=== PATIENT | female | born 1960 | race Caucasian/White ===

== ENCOUNTER 2020-02-15 06:20 | Day surgery (SDC) | payer OTHER ==
[~2020-02-15] VITALS: Ht 167.6 cm; Wt 87.1 kg
--- NOTE | 2020-02-15 08:19 | NUR ---
02/15/20 0819 Fly Gautam MD AT BEDSIDE REVIEWING PROCEDURE WITH PT.
--- NOTE | 2020-02-15 16:56 | OR ---
[facility] [address], [place] [address] Signed DATE OF OPERATION: 02/15/2020 SURGEON: Jayna Stanton MD PREOPERATIVE DIAGNOSES: 1. Colon surveillance, last colonoscopy in 2007. 2. History of right breast cancer treatment in 2000. POSTOPERATIVE DIAGNOSIS: Pandiverticulosis. PROCEDURE: Total colonoscopy to cecum. ANESTHESIA: Intravenous sedation, fentanyl 125 mcg and Versed 6 mg. INDICATION: This 59-year-old white woman is a patient of Dr. Beck and well known to me from the past. She underwent a right breast cancer treatment in 2000 and remains free of cancer. She last underwent colonoscopy in 2007. She is admitted at this time to undergo surveillance colonoscopy and understands the risks of bleeding, infection, and perforation. Notably, she has no problems of bleeding, diarrhea or constipation. COVID testing preoperatively was negative. FINDINGS: The prep was excellent. Complete colonoscopy was undertaken of the cecum. It was somewhat challenging given the extent of diverticulosis. She had diverticula throughout the colon and most densely in the sigmoid and left colon. There were no signs of polyps, colitis or other abnormality other than the diverticula. DESCRIPTION OF PROCEDURE: The patient was brought to the endoscopy suite and placed in lateral decubitus position, given intravenous sedation to the point of slurred speech and nystagmus. Digital rectal examination was normal. An Olympus video colonoscope was passed per rectum and manipulated throughout the colon noting extensive diverticular changes of the sigmoid. Various maneuvers were required to pass through this area, but once beyond sigmoid, passage was rather easy. The scope was ultimately advanced to the cecum. The ileocecal valve and appendiceal orifice were Electronically Signed By: JAYNA STANTON MD 02/15/20 1656 PATIENT NAME: STACEY HERNANDEZ OPERATIVE REPORT DATE OF : 62 REPORT #: [id number] PHYSICIAN: JAYNA STANTON MD PCP: ALY BECK DO REPORT IS CONFIDENTIAL AND NOT TO BE RELEASED WITHOUT AUTHORIZATION [facility] [address] [place] [id number] Signed normal. The scope was withdrawn from that point. Diverticula were noted in the ascending colon as well. Careful withdrawal of scope throughout showed no sign of polyps or colitis, only diverticular changes as described. Retroflexed view was normal as well. The scope was removed. The patient was taken to the recovery room in good condition. CONCLUDING DIAGNOSIS: Extensive diverticulosis. PLAN: Recommend a high-fiber diet. Repeat colonoscopy in 10 years sooner if clinically indicated. She will return to the ongoing care of Dr. Beck. MD KAREN Landin/MARYLOU /[id number] cc: Aly Beck DO Copies: ALY BECK DO ~ Electronically Signed By: JAYNA STANTON MD 02/15/20 1656 PATIENT NAME: STACEY HERNANDEZ OPERATIVE REPORT DATE OF : 62 REPORT #: [id number] PHYSICIAN: JAYNA STANTON MD PCP: ALY BECK DO REPORT IS CONFIDENTIAL AND NOT TO BE RELEASED WITHOUT AUTHORIZATION
== END 2020-02-15 08:39 | disposition home or self-care (01) ==
LOC: DS 06:20 → OPS 06:20 → DS 06:45 → OPS 06:45
PROVIDERS: Surgery
PROC: 0DJD8ZZ Inspection of Lower Intestinal Tract, Via Natural or Artificial Opening Endoscopic (ICD-10-PCS; principal; 2020-02-15 06:45)
DX: Z12.11 Encounter for screening for malignant neoplasm of colon (principal); K57.30 Diverticulosis of large intestine without perforation or abscess without bleeding; Z85.3 Personal history of malignant neoplasm of breast; Z90.711 Acquired absence of uterus with remaining cervical stump
CPT/HCPCS: 99153; G0500; J2250; J3010; J7121

== ENCOUNTER 2021-04-13 05:55 | Day surgery (SDC) | payer OTHER ==
[~2021-04-13] VITALS: Ht 167.6 cm; Wt 84.5 kg
--- NOTE | ~2021-04-13 | OR ---
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 POSTOPERATIVE DIAGNOSIS: CHRONIC CALCULOUS CHOLECYSTITIS. PROCEDURES: 1. Laparoscopic cholecystectomy with intraoperative cholangiogram. 2. Surgeon-directed fluoroscopy. ANESTHESIA: General endotracheal, Alondra Pratima, VACUUM CLOSING MACHINE OPERATOR and local 20 mL of 0.25% Marcaine with epinephrine. INDICATION: This 60-year-old white woman is a patient of Dr. Aly Beck. She has been having symptoms highly suggestive of biliary disease including epigastric and right subcostal pain. A gallbladder ultrasound was performed, which was normal and a CCK-HIDA test performed showed a 20% ejection fraction. She does have family history of biliary disease in her mother, who required cholecystectomy. The patient is noted to have a prior history of breast cancer treated by [facility] in 2000. She has had no evidence of recurrence notably, this is now 20 years later. She is admitted at this time to undergo cholecystectomy for acalculous cholecystitis. Understanding well the risks of bleeding, infection, bile duct injury, need for open procedure and other unforeseen complications. Understanding this, she wished to proceed. FINDINGS: The gallbladder was chronically inflamed to be sure. The liver was normal. She was noted to have yellow cholesterol stone material within the cystic duct, which was milked out in a retrograde fashion. The cholangiogram ultimately performed showed good filling of the biliary tree and although initially there may have been some suggestion of tiny debris within the duct. Ultimately, the duct appeared cleared and irrigated well into the duodenum. There was no evidence of bile leak. PATIENT NAME: STACEY HERNANDEZ OPERATIVE REPORT DATE OF : 62 REPORT #: [id number] PHYSICIAN: JAYNA STANTON MD PCP: ALY BECK DO REPORT IS CONFIDENTIAL AND NOT TO BE RELEASED WITHOUT AUTHORIZATION [facility] [address] [place], [place] [address] Draft The gallbladder once excised had considerable number of small stones, all of them soft and in aggregate somewhat mushy, and it is surprisingly ultrasound did not see that. DESCRIPTION OF PROCEDURE: The patient was brought to the operating room, given a general endotracheal anesthetic. Preoperative antibiotic Ancef was given and sequential compression device stockings were used. The abdomen is prepared with a chlorhexidine solution and draped sterilely. An infraumbilical incision was made and using an open Sadaf cannula technique, pneumoperitoneum achieved to a level of 14 mmHg of carbon dioxide gas. Intraabdominal inspection showed no sign of ascites or carcinomatosis. The gallbladder was obscured from view due to the omentum. The liver appeared normal. Three additional trocars were placed in usual configuration in the subxiphoid, right midclavicular, and right anterior axillary line. The gallbladder was elevated cephalad and retracted laterally. Cholesterolosis could be visualized through the wall of the gallbladder by transillumination. The gallbladder retracted laterally and using blunt and electrocautery dissection, the triangle of Calot was dissected free. There were some technical difficulties with the equipment with the picture intermittently being lost and on that basis, a bit of a delay was required to change out the monitor equipment. There were no further problems once that was squared away. Further dissection defined well the cystic duct. Clips were applied to small vessels that were in the retrocystic area, mindful of the common duct, which was quite easily visible. Ultimately, a clip was applied across the gallbladder cystic duct junction and transverse choledochotomy made in the cystic duct. Retrograde milking of the duct delivered soft much yellow gallstone material. This was extracted. At that point, good retrograde flow of normal bile was noted. Various attempts to cannulate the cystic duct were unsuccessful and on that basis, additional dissection was undertaken to free up more of the ducts. Once this was accomplished, the cystic duct was milked again in a retrograde fashion showing no further stones within the cystic duct. With all due care, the cystic duct was ultimately intubated with a cannula and intraoperative cholangiography was undertaken. Using surgeon-directed fluoroscopy, free flow of contrast was noted into the cystic duct into the common bile duct, which was somewhat dilated. There appeared to be some hazy debris possibly in the mid distal common duct, but contrast was flowing into the duodenum without problem. There was no impediment to flow. Further irrigation appeared to clear this problem. Consideration was made for laparoscopic common duct exploration, but it was deemed unnecessary given the nature of the stones, the clearance of the duct PATIENT NAME: STACEY HERNANDEZ OPERATIVE REPORT DATE OF : 62 REPORT #: [id number] PHYSICIAN: JAYNA STANTON MD PCP: ALY BECK DO REPORT IS CONFIDENTIAL AND NOT TO BE RELEASED WITHOUT AUTHORIZATION [address] [address] Draft and so on. The catheter was removed and the cystic duct was triply clipped and divided and the gallbladder was dissected free in a retrograde fashion using electrocautery. The gallbladder was placed in an endobag and extracted through the infraumbilical port site without problem, opened on the back table and to no one surprise at this point, multiple small soft yellow gallstones were noted. There was no sign of neoplasm. Irrigation was undertaken in the subhepatic space, there was no sign of bile leak and no ongoing bleeding, but given the extent of dissection and so forth, Tisseel was applied to the hepatic bed to ascertain no further bleeding. Excess irrigation fluid was suctioned free. The trocars removed under direct visualization showing no sign of bleeding. The infraumbilical fascial incision was reapproximated with interrupted 0 Vicryl suture. All wounds were copiously irrigated with saline solution and a 20 mL of 0.25% Marcaine was injected locally. The skin was then closed with interrupted 3-0 Vicryl. Steri-Strips were applied. The patient was ultimately extubated and transferred to the recovery room in good condition having suffered no complication. Sponge, needle, and instrument counts were reported as correct x3. MD KAREN Landin/FELIXL /[id number] cc: DO Akosua Ontiveros MD Copies: ALY BECK CYNTHIA SUE MD ~ PATIENT NAME: STACEY HERNANDEZ OPERATIVE REPORT DATE OF : 62 REPORT #: [id number] PHYSICIAN: JAYNA STANTON MD PCP: ALY BECK DO REPORT IS CONFIDENTIAL AND NOT TO BE RELEASED WITHOUT AUTHORIZATION
[~2021-04-13 05:55] MED LIST: LISINOPRIL-HCT1 EAC2 PO
--- NOTE | 2021-04-13 09:17 | NUR ---
04/13/21 0917 Drea Diego 0915- PT ARRIVES TO PACU EASILY AROUSABLE TO VOICE. PT REPORTS NO PAIN OR NAUSEA AND FALLS TO SLEEP WHEN NOT BEING TALKED TO. RESP EVEN AND UNLABORED. OXYGEN SAT HIGH 90'S TO 100% ON 6L VIA MASK.
[2021-04-13] MEDS ORDERED: ACETAMINOPHEN500 MG PO (09:34)
[2021-04-13] MEDS ORDERED: OXYCODON-ACETA1 EAC2 PO (09:34)
[2021-04-13] MEDS ORDERED: IBUPROFEN600 MG PO (09:34)
--- NOTE | 2021-04-13 10:00 | NUR ---
PATIENT BACK TO ROOM FROM PACU. RECEIVED REPORT FROM JEZ SNELL. FRIEDA. PATIENT STATES SHE IS NOT HAVING PAIN. PATIENT STATES THE AREA HAS A BURNING SENSATION. PATIENTS UMBILICAL INCISION HAS A SMALL AMOUNT OF RED DRAINGE AND THE OTHER 3 INCISIONS HAVE MINIMAL AMOUNT OF DRAINAGE. PATIENT IS NOT READY TO HAVE ANYTHING TO DRINK YET. WATER HAS BEEN PROVIDED FOR HER WHEN SHE IS READY. CALL LIGHT WITHIN REACH.
--- NOTE | 2021-04-13 11:05 | NUR ---
PATIENT RESTING IN BED. VSS. PATIENT STATES HER PAIN IS 2-3/10. PATIENT STATES SHE STILL HAS THE BURNING SENSATION IN HER ABDOMEN. PATIENTS UMBILICAL DRESSING HAS A SMALL AMOUNT OF DRAINAGE. HER OTHER 3 DRESSINGS HAVE MINIMAL DRAINAGE. PATIENT DENIES NAUSEA. PATIENT IS EATING PUDDING AND DRINKING WATER. AT BEDSIDE. CALL LIGHT WITHIN REACH.
--- NOTE | 2021-04-13 12:17 | NUR ---
1200 HAS EATEN PUDDING RATES PAIN 2/10. AMB TO BR VOIDS 300MLS YELLOW URINE. SOME BLEEDING AT R AND UMB STERI STRIP RENFORCED WITH LARGE BANDAIDS. WANTS TO GET DRESSED AND GO HOME.
--- NOTE | 2021-04-14 16:12 | PATH ---
[facility] [address] [facility] [place], [place] [address] Signed SPECIMEN(S): A GALLBLADDER WITH STONES SPECIMEN SOURCE: A. GALLBLADDER WITH STONES CLINICAL HISTORY: Laparoscopic cholecystectomy. Biliary disease, calculus cholecystitis. FINAL PATHOLOGIC DIAGNOSIS: Gallbladder, cholecystectomy: - Chronic cholecystitis with cholesterolosis. - Cholelithiasis with cystic duct obstruction. - One lymph node with no evidence of malignancy. NAL:[facility]:C2NR MICROSCOPIC EXAMINATION: Histologic sections of all submitted blocks are examined by light microscopy. These findings, together with the gross examination, support the pathologic diagnosis. GROSS DESCRIPTION: The specimen, labeled "CR, A.," and designated on the requisition "gallbladder with stones," is received in formalin and consists of Specimen: Disrupted gallbladder. Dimensions: 8.3 x 3.8 cm. Serosa: Violaceous and smooth. Cystic Duct: Obstructed by calculi. Calculi: Yellow, bosselated calculi measuring 4.0 x 4.0 x 0.3 cm in aggregate. Mucosa: Brown-pink with yellow flecking. Wall thickness: Up to 0.6 cm. Lymph node: [place] nodule measuring 0.4 x 0.4 x 0.3 cm; submitted intact. Additional: None. Refrigeration Systems Installer sections are submitted in cassette (A1). AT (under the direct supervision of a pathologist) The Gross Description was prepared using a voice recognition system. The report was reviewed for accuracy; however, sound-alike word errors, addition and/or deletions may occur. If there is any question about this report, please contact Client Services. PERFORMING LABORATORY: The technical component was performed by [employer], PATIENT NAME: STACEY HERNANDEZ PATHOLOGY DATE OF : 62 REPORT #: [id number] PHYSICIAN: ADELINE PATHOLOGY PCP: CASSIE BECK DO REPORT IS CONFIDENTIAL AND NOT TO BE RELEASED WITHOUT AUTHORIZATION [facility] [address] [place], [place] [address] [place] [address] (Dressing Room Porter: Cami Brooks MD; CLIA# [id number]). Professional interpretation was performed by [employer] [facility], [address] [address] (CLIA# [id number]). Diagnostician: Alexandria Bashir MD Pathologist Electronically Signed 04/14/2021 Copies: ~ PATIENT NAME: STACEY HERNANDEZ PATHOLOGY DATE OF : 62 REPORT #: [id number] PHYSICIAN: ADELINE MYERS PCP: CASSIE BECK DO REPORT IS CONFIDENTIAL AND NOT TO BE RELEASED WITHOUT AUTHORIZATION
== END 2021-04-13 12:00 | disposition home or self-care (01) ==
LOC: DS 05:55
PROVIDERS: ATTEND Surgery
PROC: BF13YZZ Fluoroscopy of Gallbladder and Bile Ducts using Other Contrast (ICD-10-PCS; 2021-04-13)
PROC: 0FT44ZZ Resection of Gallbladder, Percutaneous Endoscopic Approach (ICD-10-PCS; principal; 2021-04-13 06:45)
DX: K80.11 Calculus of gallbladder with chronic cholecystitis with obstruction (principal); I10 Essential (primary) hypertension; K21.9 Gastro-esophageal reflux disease without esophagitis; Z85.3 Personal history of malignant neoplasm of breast; Z92.3 Personal history of irradiation; Z88.5 Allergy status to narcotic agent
CPT/HCPCS: 74300; J0330; J0690; J1100; J1644; J1885; J2001; J2250; J2405; J2704; J7121; Q9967